=== PATIENT | male | born 1975 | race African-American/Black ===

== ENCOUNTER 2021-02-24 12:46 | Emergency (ER) | payer BC, SELFPAY ==
[2021-02-24] MEDS ORDERED: Aspirin Chewable 81 MG TAB ONE (13:16)
[2021-02-24 13:30] LABS: #Eosinphils 0.1 10x3/uL (0.0-0.5); #Monocytes 0.3 10x3/uL (0.0-1.1); %Basophils 0.2 % (0.0-2.0); %Eosinophils 0.8 % (0.0-6.0); %Lymphocytes 26.5 % (18.0-47.0); %Monocytes 5.4 % (0.0-10.0); %Neutrophils 66.8 % (40.0-75.0); Hemoglobin 14.8 g/dL (13.5-17.5); Mean Corpuscular HGB CONC 33.9 g/dL (32.0-36.0); Mean Corpuscular Hemoglobin 32.5 pg (27.0-33.0); Mean Corpuscular Volume 95.8 fl (81.2-95.1); Mean Platelet Volume 11.2 fl (7.4-10.4); Platelet Count 154 10x3/uL (150-450); RBC Distribution Width 13.1 % (11.5-14.5); Red Blood Cell (RBC) Count 4.55 10x6/uL (4.32-5.72); White Blood Cell (WBC) Count 5.9 10x3/uL (3.5-10.5)
[2021-02-24 13:37] LABS: ALT (SGPT) 27 U/L (8-55); AST (SGOT) 23 U/L (5-34); Alkaline Phosphatase 84 U/L (40-110); Anion Gap 11 mmol/L (10-20); BUN (Urea Nitrogen) 12 mg/dL (8.9-20.6); Bilirubin, Total 0.3 mg/dL (0.2-1.2); Calc. Creatinine Clearance 0 mL/min (70-130); Calcium 9.3 mg/dL (7.8-10.44); Carbon Dioxide 24 mmol/L (22-29); Chloride 108 mmol/L (98-107); Globulin 3.4 g/dL (2.4-3.5); Glucose 104 mg/dL (70-105); Potassium 3.9 mmol/L (3.5-5.1); Protein, Total 7.4 g/dL (6.0-8.3); Sodium 139 mmol/L (136-145)
[2021-02-24 15:37] LABS: Troponin I Less than 0.010 ng/mL (< 0.028)
== END 2021-02-24 16:25 | disposition home or self-care (01) ==
LOC: CSHERS 12:46
DX: R07.89 Other chest pain (principal); F17.210 Nicotine dependence, cigarettes, uncomplicated
CPT/HCPCS: 71045; 80053; 84484; 85025; 93005; 94760

== ENCOUNTER 2021-12-13 02:40 | Inpatient (IN) | payer BC ==
[2021-12-13] MEDS ORDERED: Aspirin Chewable 81 MG TAB ONE (03:10)
[2021-12-13 03:34] LABS: #Eosinphils 0.1 10x3/uL (0.0-0.5); #Monocytes 0.6 10x3/uL (0.0-1.1); #Neutrophils 4.6 10x3/uL (1.5-8.4); %Basophils 0.4 % (0.0-2.0); %Eosinophils 1.6 % (0.0-6.0); %Lymphocytes 33.9 % (18.0-47.0); %Monocytes 7.6 % (0.0-10.0); %Neutrophils 56.1 % (40.0-75.0); Hemoglobin 13.7 g/dL (13.5-17.5); Mean Corpuscular HGB CONC 33.7 g/dL (32.0-36.0); Mean Corpuscular Hemoglobin 31.9 pg (27.0-33.0); Mean Corpuscular Volume 94.6 fl (81.2-95.1); Mean Platelet Volume 11.1 fl (7.4-10.4); Platelet Count 156 10x3/uL (150-450); RBC Distribution Width 13.4 % (11.5-14.5); Red Blood Cell (RBC) Count 4.29 10x6/uL (4.32-5.72); White Blood Cell (WBC) Count 8.2 10x3/uL (3.5-10.5)
[2021-12-13] MEDS ORDERED: Magnesium 2 GM/50 ML BAG (IN WATER) ONE (03:35)
[2021-12-13] MEDS ORDERED: Metoprolol Tartrate 5 MG/5 ML VIAL ONE (03:46)
[2021-12-13 03:52] LABS: ALT (SGPT) 27 U/L (8-55); AST (SGOT) 26 U/L (5-34); Albumin 3.9 g/dL (3.5-5.0); Alkaline Phosphatase 70 U/L (40-110); Anion Gap 16 mmol/L (10-20); BUN (Urea Nitrogen) 19 mg/dL (8.9-20.6); Bilirubin, Total 0.3 mg/dL (0.2-1.2); Calc. Creatinine Clearance 0 mL/min (70-130); Calcium 9.3 mg/dL (7.8-10.44); Carbon Dioxide 22 mmol/L (22-29); Chloride 105 mmol/L (98-107); Globulin 3.6 g/dL (2.4-3.5); Glucose 101 mg/dL (70-105); Potassium 3.5 mmol/L (3.5-5.1); Protein, Total 7.5 g/dL (6.0-8.3); Sodium 139 mmol/L (136-145)
[2021-12-13] MEDS ORDERED: Amiodarone 150 MG/3 ML VIAL ONE (04:09)
[2021-12-13] MEDS ORDERED: Amiodarone In Dextrose 200 ML ONE (04:09)
[2021-12-13] MEDS ORDERED: Potassium Chloride 20 MEQ TAB PO SCH (06:00)
[2021-12-13 06:36] VITALS: BMI 46.0
[2021-12-13 06:38] LABS: Cardiac Risk 3.7 (Less than 4.5)
[2021-12-13 06:41] LABS: Troponin I Less than 0.010 ng/mL (< 0.028)
[2021-12-13] MEDS: Enoxaparin Sodium 40 MG/0.4 ML SYRINGE SC SCH (09:00)
[2021-12-13] MEDS: Aspirin 81 mg Enteric Coated Tablet PO SCH (09:00)
[2021-12-13] MEDS: Amiodarone In Dextrose 200 ML IVPB SCH ×2 (09:32→19:53)
[2021-12-13 11:06] LABS: Amphetamine Not Detected (NotDetected); Barbiturates Screen Not Detected (NotDetected); Benzodiazepine Screen Not Detected (NotDetected); Cocaine Metabolite Screen Not Detected (NotDetected); Methadone Not Detected (NotDetected); Methamphetamine Not Detected (NotDetected); Opiate Screen Not Detected (NotDetected); Oxycodone Screen Not Detected (NotDetected); Phencyclidine (PCP) Not Detected (NotDetected); THC/Cannabinoid Screen Not Detected (NotDetected); Tricyclic Screen Not Detected (NotDetected)
[2021-12-14 05:20] LABS: #Eosinphils 0.1 10x3/uL (0.0-0.5); #Monocytes 0.4 10x3/uL (0.0-1.1); #Neutrophils 3.3 10x3/uL (1.5-8.4); %Basophils 0.2 % (0.0-2.0); %Eosinophils 1.7 % (0.0-6.0); %Lymphocytes 36.7 % (18.0-47.0); %Monocytes 6.1 % (0.0-10.0); %Neutrophils 55.1 % (40.0-75.0); Hemoglobin 13.7 g/dL (13.5-17.5); Mean Corpuscular HGB CONC 33.3 g/dL (32.0-36.0); Mean Platelet Volume 11.1 fl (7.4-10.4); Platelet Count 145 10x3/uL (150-450); RBC Distribution Width 13.4 % (11.5-14.5); Red Blood Cell (RBC) Count 4.28 10x6/uL (4.32-5.72); White Blood Cell (WBC) Count 5.9 10x3/uL (3.5-10.5)
[2021-12-14 05:31] LABS: Anion Gap 15 mmol/L (10-20); BUN (Urea Nitrogen) 12 mg/dL (8.9-20.6); Calc. Creatinine Clearance 240 mL/min (70-130); Calcium 8.9 mg/dL (7.8-10.44); Carbon Dioxide 20 mmol/L (22-29); Chloride 109 mmol/L (98-107); Glucose 100 mg/dL (70-105); Potassium 3.8 mmol/L (3.5-5.1); Sodium 140 mmol/L (136-145)
[2021-12-14] MEDS: Enoxaparin Sodium 40 MG/0.4 ML SYRINGE SC SCH (08:10)
[2021-12-14] MEDS: Amiodarone 200 MG TAB PO SCH ×2 (08:11→21:04)
[2021-12-14] MEDS: Aspirin 81 mg Enteric Coated Tablet PO SCH (08:15)
[2021-12-14] MEDS ORDERED: Metoprolol Tartrate 25 MG TAB PO SCH (11:00)
[2021-12-14] MEDS: Metoprolol Tartrate 25 MG TAB PO SCH (21:05)
[2021-12-15 07:38] VITALS: BP 119/61; TEMP 97.7
[2021-12-15] MEDS: Amiodarone 200 MG TAB PO SCH (08:40)
[2021-12-15] MEDS: Enoxaparin Sodium 40 MG/0.4 ML SYRINGE SC SCH (08:40)
[2021-12-15] MEDS: Aspirin 81 mg Enteric Coated Tablet PO SCH (08:40)
[2021-12-15] MEDS: Metoprolol Tartrate 25 MG TAB PO SCH (08:40)
== END 2021-12-15 16:22 | disposition home or self-care (01) | DRG 309 ==
LOC: CSHERS 02:40 → CSHTELE 06:18
PROVIDERS: ADMIT Family Medicine; ATTEND Family Medicine
DX: I47.2 Ventricular tachycardia (principal); Z68.42 Body mass index [BMI] 45.0-49.9, adult; F17.210 Nicotine dependence, cigarettes, uncomplicated; E66.01 Morbid (severe) obesity due to excess calories
CPT/HCPCS: 36415; 71045; 80048; 80053; 80061; 80306; 83735; 84443; 84484; 85025; 93005; 93010; 93306; J0282; J1650; J3475

== ENCOUNTER 2023-05-23 22:52 | Emergency (ER) | payer BC, OTHER | END 2023-05-23 23:35 | disposition home or self-care (01) | LOC: CSHERS 22:52 | DX: L03.011 Cellulitis of right finger (principal); F17.210 Nicotine dependence, cigarettes, uncomplicated | CPT/HCPCS: 26010 ==